=== PATIENT | male | born 1985 | race Caucasian/White ===

== ENCOUNTER → 2017-10-01 | Outpatient (CLI) | payer MEDICAID, SELFPAY | LOC: M OUTALCOH 07:43 | DX: Z13.9 Encounter for screening, unspecified (principal); F10.20 Alcohol dependence, uncomplicated ==

== ENCOUNTER 2017-10-27 16:37 | Outpatient (RCR) | payer MEDICAID, SELFPAY | END 2017-11-15 | LOC: M OUTALCOH 16:37 | DX: F10.20 Alcohol dependence, uncomplicated (principal) ==

== ENCOUNTER 2017-11-16 10:42 | Outpatient (RCR) | payer MEDICAID | END 2017-12-16 | LOC: M OUTALCOH 11-17 16:00 | DX: F10.20 Alcohol dependence, uncomplicated (principal) ==

== ENCOUNTER 2017-12-22 11:57 | Outpatient (RCR) | payer MEDICAID | END 2018-01-15 | LOC: M OUTALCOH 11:57 | DX: F10.20 Alcohol dependence, uncomplicated (principal) ==

== ENCOUNTER → 2022-05-05 | Outpatient (CLI) | payer OTHER ==
[~2022-05-05] MED LIST: CHLO125TA PO; LISI10TA22 PO; TRAZ1TAB14 PO
== END ==
LOC: M LABSMTC 07:45
PROVIDERS: ATTEND Anesthesiology
DX: Z01.812 Encounter for preprocedural laboratory examination (principal); Z20.822 Contact with and (suspected) exposure to COVID-19

== ENCOUNTER 2022-05-08 08:06 | Day surgery (SDC) | payer OTHER ==
[~2022-05-08] VITALS: Ht 190.5 cm; Wt 98.0 kg
[~2022-05-08 08:06] MED LIST changes: +LR 1,000 ML IV SCH; +ceFAZolin SOD 2 GM in IV 1 EA IV ONE
[2022-05-08 09:14] LABS: HEMATOCRIT 42.8 % (42.0-52.0); HEMOGLOBIN 14.6 g/dl (13.5-17.5); MEAN CORPUSCULAR HEMOGLOBIN 31.8 pg (27.0-33.0); MEAN CORPUSCULAR HGB CONC 34.1 g/dl (32.0-36.5); MEAN CORPUSCULAR VOLUME 93.2 fl (80.0-96.0); PLATELET COUNT, AUTOMATED 177 10^3/uL (150-450); RED BLOOD COUNT 4.59 10^6/uL (4.30-6.10); WHITE BLOOD COUNT 5.3 10^3/uL (4.0-10.0)
[2022-05-08] MEDS ORDERED: BUPIVACAINE/EPIN 0.25% 30ML VIAL As Ordered ONE (09:34)
[2022-05-08] MEDS ORDERED: ROCURONIUM BROMIDE 50MG/5ML VIAL As Ordered ONE (09:41)
[2022-05-08] MEDS ORDERED: SUGAMMADEX SODIUM 500 MG/5 ML VIAL (BRIDION) As Ordered ONE (09:41)
[2022-05-08] MEDS ORDERED: MIDAZOLAM INJ 2MG/2ML VIAL As Ordered ONE (09:41)
[2022-05-08] MEDS ORDERED: fentaNYL 250 MCG/5 ML INJECTION As Ordered ONE (09:41)
[2022-05-08] MEDS ORDERED: METOCLOPRAMIDE INJ 10MG/2ML VIAL As Ordered ONE (09:41)
[2022-05-08] MEDS ORDERED: propofoL 200 MG/20 ML VIAL As Ordered ONE (09:41)
[2022-05-08] MEDS ORDERED: ACETAMINOPHEN 1000MG 100ML IV BAG As Ordered ONE (09:41)
[2022-05-08] MEDS ORDERED: ONDANSETRON 4MG 2ML VIAL As Ordered ONE (09:41)
[2022-05-08] MEDS ORDERED: LIDOCAINE 2% 100MG/5ML SDV (FOR ANES.) As Ordered ONE (09:41)
[2022-05-08] MEDS ORDERED: KETOROLAC 60MG 2ML VIAL As Ordered ONE (09:47)
[2022-05-08] MEDS ORDERED: LABETALOL 100MG/20ML VIAL As Ordered ONE (09:59)
[2022-05-08] MEDS ORDERED: HYDROMORPHONE HCL 0.5 MG/ 0.5 ML SYRINGE IV PRN (10:35)
[2022-05-08] MEDS ORDERED: fentaNYL 100 MCG/2 ML INJECTION IV PRN (10:35)
[2022-05-08] MEDS ORDERED: ONDANSETRON 4MG 2ML VIAL IV PRN (10:35)
[2022-05-08] MEDS ORDERED: METOCLOPRAMIDE INJ 10MG/2ML VIAL IV PRN (10:35)
[2022-05-08] MEDS ORDERED: oxyCODONE 5MG TAB PO PRN (10:35)
[2022-05-08] MEDS ORDERED: NORCO, ANEXSIA 5/325MG TABLET (HYDROcodone/ACETAMINOPHEN) PO PRN (11:20)
[2022-05-08 12:00] VITALS: BP 117/96
== END 2022-05-08 12:07 | disposition home or self-care (01) ==
LOC: M SDC 08:06
PROVIDERS: ATTEND Surgery
DX: K40.90 Unilateral inguinal hernia, without obstruction or gangrene, not specified as recurrent (principal); I10 Essential (primary) hypertension; F17.220 Nicotine dependence, chewing tobacco, uncomplicated; Z79.899 Other long term (current) drug therapy
CPT/HCPCS: 36415; 49650; 85027; 93005; C1781; J0131; J0690; J1100; J2250; J2405; J2765; J3010; S2900

== ENCOUNTER 2022-06-10 21:58 | Observation (INO) | payer OTHER ==
[~2022-06-10] VITALS: Ht 190.5 cm; Wt 100.0 kg
[~2022-06-10 21:58] MED LIST changes: -LR 1,000 ML IV SCH; -ceFAZolin SOD 2 GM in IV 1 EA IV ONE
[2022-06-11 00:20] VITALS: BP 171/96
[2022-06-11] MEDS: NS 1,000 ML IV SCH ×3 (00:35→13:36)
[2022-06-11] MEDS ORDERED: VITMTA PO (01:24)
[2022-06-11] MEDS ORDERED: CHLO25TA PO (01:24)
[2022-06-11] MEDS ORDERED: TRAZ150T90 PO (01:24)
[2022-06-11] MEDS ORDERED: LISI10TA22 PO (01:24)
[2022-06-11] MEDS ORDERED: HYDR-4571 PO (01:24)
[2022-06-11] MEDS ORDERED: HOME MED LIST COMPLETE! XX SCH (01:25)
[2022-06-11 05:57] VITALS: BP 146/86
== END 2022-06-11 12:30 | disposition home or self-care (01) ==
LOC: M MS5PR 06-11 00:20
PROVIDERS: ADMIT Surgery; ATTEND Surgery
DX: K52.9 Noninfective gastroenteritis and colitis, unspecified (principal); I10 Essential (primary) hypertension; Z79.899 Other long term (current) drug therapy